=== PATIENT | female | born 1975 | race Caucasian/White ===

== ENCOUNTER 2018-10-08 15:55 | Emergency (ER) | payer MEDICARE, MEDICAID ==
--- NOTE | 2018-10-08 16:03 | ER Report ---
History and Physical Time Seen By MD: 16:03 Hx. of Stated Complaint: patient reports not being able to hear out of her right ear and it is painful. Also thinks she may have a UTI HPI/ROS CHIEF COMPLAINT: Right ear pain, difficulty hearing out of that ear, burning with urination HISTORY OF PRESENT ILLNESS: 43-year-old female patient presents to emergency room with complaint of right ear pain, difficulty hearing out of the right ear, burning with urination. Patient states that she's had a hard time hearing out of her ear for the past several days. She denies having any fevers or chills. She states that this morning started having burning with urination. She states that it is not all the time, however it is at the and of her urinary stream. She states she has not taken any medication for this. Patient also states she has been out of her medications for her bipolar. She requests a week's worth so she can get and see her primary care provider. REVIEW OF SYSTEMS: Respiratory: No cough, no dyspnea. Cardiovascular: No chest pain, no palpitations. Gastrointestinal: No vomiting, no abdominal pain. Musculoskeletal: No back pain. Allergies: Coded Allergies: acetaminophen (Verified Allergy, Intermediate, hives, 10/08/18) hydrocodone (Verified Allergy, Intermediate, hives, 10/08/18) Home Meds Active Scripts Lamotrigine (LAMICTAL) 100 Mg Tablet, 100 MG PO DAILY, #7 TAB Prov:RILEY BURGOS 10/08/18 Aripiprazole (ABILIFY) 20 Mg Tablet, 20 MG PO QHS, #7 TAB Prov:RILEY BURGOS 10/08/18 Phenazopyridine Hcl (PHENAZOPYRIDINE HCL) 100 Mg Tablet, 100 MG PO TID PRN for PAIN, #15 TAB Prov:RILEY BURGOS 10/08/18 Sulfamethoxazole/Trimet 800-160 Mg Tab (BACTRIM DS TABLET) 1 Each Tablet, 1 TAB PO Q12H, #14 TAB Prov:RILEY BURGOS 10/08/18 Past Medical/Surgical History Patient has a past medical history of fibromyalgia, bipolar depression. Patient has a surgical history of cholecystectomy. Reviewed Nurses Notes: Yes Constitutional Vital Sign - Last 24 Hours 10/08/18 10/08/18 16:00 17:12 Temp 97.6 Pulse 82 85 Resp 16 16 B/P (MAP) 111/83 118/72 (87) Pulse Ox 92 95 O2 Delivery Room Air Room Air Physical Exam General Appearance: The patient is alert, has no immediate need for airway protection and no current signs of toxicity. ENT: Patient has cerumen impaction bilaterally. I'm unable to visualize the tympanic membranes and this time. Respiratory: Chest is non tender, lungs are clear to auscultation. Cardiac: regular rate and rhythm Gastrointestinal: Abdomen is soft and non tender, no masses, bowel sounds normal. Musculoskeletal: Neck: Neck is supple and non tender. Extremities have full range of motion and are non tender. Skin: No rashes or lesions. DIFFERENTIAL DIAGNOSIS: After history and physical exam differential diagnosis was considered for otitis media, cerumen impaction, UTI. Medical Decision Making Data Points Laboratory Hematology Test 10/08/18 15:59 Urine Color Yellow Urine Clarity Cloudy Urine pH 6.0 pH (4.8-9.5) Urine Specific [place] 1.027 Urine Protein 30 mg/dL (NEGATIVE) Urine Glucose (UA) Negative mg/dL (NEGATIVE) Urine Ketones Negative mg/dL (NEGATIVE) Urine Blood Large (NEGATIVE) Urine Nitrite Negative (NEGATIVE) Urine Bilirubin Negative (NEGATIVE) Urine Urobilinogen 2.0 mg/dL (0.2-1.9) Urine Leukocyte Esterase Moderate (NEGATIVE) Urine RBC 1088 /HPF (0-2/HPF) Urine WBC 955 /HPF (0-5/HPF) Urine WBC Clumps Mod /HPF Urine Squamous Epithelial Cells Many /LPF (</=FEW) Urine Bacteria Negative /HPF (NONE-FEW) Urine Mucus None /HPF (NONE-FEW) Chemistry Test 10/08/18 15:59 Urine Color Yellow Urine Clarity Cloudy Urine pH 6.0 pH (4.8-9.5) Urine Specific [place] 1.027 Urine Protein 30 mg/dL (NEGATIVE) Urine Glucose (UA) Negative mg/dL (NEGATIVE) Urine Ketones Negative mg/dL (NEGATIVE) Urine Blood Large (NEGATIVE) Urine Nitrite Negative (NEGATIVE) Urine Bilirubin Negative (NEGATIVE) Urine Urobilinogen 2.0 mg/dL (0.2-1.9) Urine Leukocyte Esterase Moderate (NEGATIVE) Urine RBC 1088 /HPF (0-2/HPF) Urine WBC 955 /HPF (0-5/HPF) Urine WBC Clumps Mod /HPF Urine Squamous Epithelial Cells Many /LPF (</=FEW) Urine Bacteria Negative /HPF (NONE-FEW) Urine Mucus None /HPF (NONE-FEW) Urinalysis Test 10/08/18 15:59 Urine Color Yellow Urine Clarity Cloudy Urine pH 6.0 pH (4.8-9.5) Urine Specific [place] 1.027 Urine Protein 30 mg/dL (NEGATIVE) Urine Glucose (UA) Negative mg/dL (NEGATIVE) Urine Ketones Negative mg/dL (NEGATIVE) Urine Blood Large (NEGATIVE) Urine Nitrite Negative (NEGATIVE) Urine Bilirubin Negative (NEGATIVE) Urine Urobilinogen 2.0 mg/dL (0.2-1.9) Urine Leukocyte Esterase Moderate (NEGATIVE) Urine RBC 1088 /HPF (0-2/HPF) Urine WBC 955 /HPF (0-5/HPF) Urine WBC Clumps Mod /HPF Urine Squamous Epithelial Cells Many /LPF (</=FEW) Urine Bacteria Negative /HPF (NONE-FEW) Urine Mucus None /HPF (NONE-FEW) ED Course/Re-evaluation ED Course Patient was admitted in exam room, history and physical were obtained. Differential diagnoses were considered. On examination lungs are clear, heart regular, abdomen is soft nontender. Patient has cerumen impaction in bilateral auditory canals. A urinalysis was obtained. Patient did have a mild leukocyte esterase with 933 white blood cells per high-power field. Culture was ordered. We will go ahead and start her on Bactrim one tab by mouth twice a day 7 days #14. I was able to flush out her ear canals. I used warm water and a piston syringe. Is able clear both out without any problems. Patient did have improved comfort. We will go ahead and discharge patient home at this time. She is follow-up with primary care provider in the next week. Patient was given a prescription for her Lamictal and Abilify. Decision to Disposition Date: Oct 08, 2018 Decision to Disposition Time: 17:03 Depart Departure Latest Vital Signs Vital Signs Date Time Temp Pulse Resp B/P (MAP) Pulse Ox O2 Delivery O2 Flow Rate FiO2 10/08/18 17:12 85 16 118/72 (87) 95 Room Air 10/08/18 16:00 97.6 Impression: Primary Impression: UTI (urinary tract infection) Additional Impression: Impacted cerumen of both ears Condition: Improved Disposition: HOME OR SELF-CARE New Scripts Lamotrigine (LAMICTAL) 100 Mg Tablet 100 MG PO DAILY, #7 TAB Prov: RILEY BURGOS 10/08/18 Aripiprazole (ABILIFY) 20 Mg Tablet 20 MG PO QHS, #7 TAB Prov: RILEY BURGOS 10/08/18 Phenazopyridine Hcl (PHENAZOPYRIDINE HCL) 100 Mg Tablet 100 MG PO TID PRN for PAIN, #15 TAB Prov: RILEY BURGOS 10/08/18 Sulfamethoxazole/Trimet 800-160 Mg Tab (BACTRIM DS TABLET) 1 Each Tablet 1 TAB PO Q12H, #14 TAB Prov: RILEY BURGOS 10/08/18 Patient Instructions: Urinary Tract Infection in Women (ED) Additional Instructions: Increase fluid intake. Get plenty of rest. Take the medication as directed. Follow up with your primary care provider in the next week. We will culture the urine and will call if we need to change your antibiotics. Problem Qualifiers Primary Impression: UTI (urinary tract infection) Urinary tract infection type: acute cystitis Hematuria presence: with hem aturia Qualified Codes: N30.01 - Acute cystitis with hematuria RILEY BURGOS Oct 08, 2018 16:04
[2018-10-08] MEDS ORDERED: LAMO100T56 PO (17:00)
[2018-10-08] MEDS ORDERED: ARIP20TA11 PO (17:00)
[2018-10-08] MEDS ORDERED: PHEN100T27 PO (17:00)
[2018-10-08] MEDS ORDERED: SULF-198 PO (17:00)
[2018-10-08 17:12] VITALS: BP 118/72
== END 2018-10-08 17:13 | disposition home or self-care (01) ==
LOC: ER 16:12
DX: N30.01 Acute cystitis with hematuria (principal)
CPT/HCPCS: 81001; 87077; 87088; 87186; 99282

== ENCOUNTER 2018-11-11 19:14 | Emergency (ER) | payer MEDICARE, MEDICAID ==
[~2018-11-11 19:14] MED LIST: ARIP20TA11 PO; LAMO100T56 PO; PHEN100T27 PO; SULF-198 PO
[2018-11-11] MEDS ORDERED: ONDANSETRON 4 MG/2 ML VIAL IVP ONE (19:35)
[2018-11-11] MEDS ORDERED: NS(*) 0.9% 1000 ML BAG 1,000 ML IV ONE (19:35)
--- NOTE | 2018-11-11 19:41 | ER Report ---
History and Physical Time Seen By MD: 19:27 Hx. of Stated Complaint: pt has had abdominal/pelvic pain since last night. getting worse today. wants to talk with the doc about feeling depressed. thinks the abdominal pain is associated with that. feeling a little suicidal because she has been off her meds for awhile because she washed her perscription HPI/ROS CHIEF COMPLAINT: Abdominal pain HISTORY OF PRESENT ILLNESS: This is a 43-year-old female. Abdominal pain since last night. Worsening today. Had some loose stools today as well. Nausea without any vomiting. No problems with urination. Has not been able to eat or drink much because of the nausea. Also has been off of her depression meds/bipolar meds for a few days because she washed them with the laundry. No fevers or chills noted. She has had suicidal thoughts in the past and has had a few fleeting thoughts last few days but denies michael suicidal ideation. She normally takes Abilify and Lamictal. Allergies: Coded Allergies: acetaminophen (Verified Allergy, Intermediate, hives, 11/11/18) hydrocodone (Verified Allergy, Intermediate, hives, 11/11/18) Home Meds Active Scripts Aripiprazole (ABILIFY) 20 Mg Tablet, 20 MG PO QHS, #30 TAB 0 Refills Prov:DELON WILEY MD 11/11/18 Lamotrigine (LAMICTAL) 100 Mg Tablet, 100 MG PO QDAY, #30 TAB 0 Refills Prov:DELON WILEY MD 11/11/18 Lamotrigine (LAMICTAL) 100 Mg Tablet, 100 MG PO DAILY, #7 TAB Prov:RILEY BURGOS 10/08/18 Aripiprazole (ABILIFY) 20 Mg Tablet, 20 MG PO QHS, #7 TAB Prov:RILEY BURGOS 10/08/18 Phenazopyridine Hcl (PHENAZOPYRIDINE HCL) 100 Mg Tablet, 100 MG PO TID PRN for PAIN, #15 TAB Prov:RILEY BURGOS 10/08/18 Discontinued Scripts Sulfamethoxazole/Trimet 800-160 Mg Tab (BACTRIM DS TABLET) 1 Each Tablet, 1 TAB PO Q12H, #14 TAB Prov:RILEY BURGOS 10/08/18 Reviewed Nurses Notes: Yes Hx Substance Use Disorder: No Hx Alcohol Use: No Constitutional Vital Sign - Last 24 Hours 11/11/18 11/11/18 11/11/18 11/11/18 19:14 19:21 19:25 19:29 Temp 97.3 Pulse ??? 73 76 Resp 14 B/P (MAP) 116/98 116/98 (104) Pulse Ox 97 96 O2 Delivery Room Air 11/11/18 11/11/18 11/11/18 11/11/18 19:30 19:44 19:45 20:15 Pulse 81 B/P (MAP) ???/??? (1665) 126/97 (107) ???/??? (1665) Pulse Ox 96 11/11/18 11/11/18 11/11/18 11/11/18 20:29 21:15 21:45 22:00 Pulse 129 76 71 ??? Pulse Ox 85 89 98 85 11/11/18 11/11/18 11/11/18 11/11/18 22:05 22:20 22:26 22:35 Pulse ? B/P (MAP) 110/83 (92) Pulse Ox 88 11/11/18 11/11/18 22:50 23:05 Pulse ? Intake and Output 11/11/18 11/11/18 11/12/18 14:59 22:59 06:59 Intake Total 1000 ml Balance 1000 ml Physical Exam General Appearance: The patient is alert. No acute distress. Eyes: Pupils are equal, round. No pallor, injection or icterus. ENT: Mucous membranes are moist. Normal oral mucosa. Posterior oropharynx is normal. Neck: Supple and non tender. Respiratory: Lungs are clear to auscultation. Cardiovascular: Regular rate and rhythm. No murmurs, gallops or rubs. Normal capillary refill. Gastrointestinal: Abdomen is soft, pain across the lower abdomen, worse in the suprapubic area. Nondistended. Guarding but no rebound. No masses or organomegaly. Hyperactive bowel sounds. No costovertebral angle tenderness with percussion. Neurological: Alert and oriented x3. Skin: Warm and dry. DIFFERENTIAL DIAGNOSIS: After history and physical exam, differential diagnosis was considered for abdominal pain including but not limited to appendicitis, cholecystitis, gastritis and urinary tract infection. Medical Decision Making Data Points Result Diagram: 11/11/18195411/11/181954 Laboratory Hematology Test 11/11/18 19:27 11/11/18 19:55 Urine Color [place] Urine Clarity Slightly-cloudy Urine pH 5.0 pH (4.8-9.5) Urine Specific [place] 1.032 Urine Protein Negative mg/dL (NEGATIVE) Urine Glucose (UA) Negative mg/dL (NEGATIVE) Urine Ketones Negative mg/dL (NEGATIVE) Urine Blood Negative (NEGATIVE) Urine Nitrite Negative (NEGATIVE) Urine Bilirubin Negative (NEGATIVE) Urine Urobilinogen Negative mg/dL (0.2-1.9) Urine Leukocyte Esterase Negative (NEGATIVE) Urine RBC 2 /HPF (0-2/HPF) Urine WBC 1 /HPF (0-5/HPF) Urine Squamous Epithelial Cells Many /LPF (</=FEW) Urine Bacteria Few /HPF (NONE-FEW) Urine Mucus Few /HPF (NONE-FEW) Urine HCG, Qualitative Negative (NEGATIVE) Urine Opiates Screen Negative Urine Barbiturates Screen Negative Ur Tricyclic Antidepressants Screen Negative Urine Phencyclidine Screen Negative Urine Amphetamines Screen Positive Urine Benzodiazepines Screen Negative Urine Cocaine Screen Negative Urine Cannabinoids Screen Negative Red Blood Count 4.76 M/uL (4.17-5.56) Mean Corpuscular Volume 91.3 fL (80.0-96.0) Mean Corpuscular Hemoglobin 30.9 pg (26.0-33.0) Mean Corpuscular Hemoglobin Concent 33.9 g/dL (32.0-36.0) Red Cell Distribution Width 13.8 % (11.5-14.5) Mean Platelet Volume 8.2 fL (7.2-11.1) Neutrophils (%) (Auto) 52.8 % (39.4-72.5) Lymphocytes (%) (Auto) 34.5 % (17.6-49.6) Monocytes (%) (Auto) 9.7 % (4.1-12.4) Eosinophils (%) (Auto) 2.2 % (0.4-6.7) Basophils (%) (Auto) 0.8 % (0.3-1.4) Nucleated RBC Relative Count (auto) 0.0 /100WBC Neutrophils # (Auto) 3.0 K/uL (2.0-7.4) Lymphocytes # (Auto) 2.0 K/uL (1.3-3.6) Monocytes # (Auto) 0.6 K/uL (0.3-1.0) Eosinophils # (Auto) 0.1 K/uL (0.0-0.5) Basophils # (Auto) 0.0 K/uL (0.0-0.1) Nucleated RBC Absolute Count (auto) 0.00 K/uL Sodium Level 139 mmol/L (137-145) Potassium Level 4.3 mmol/L (3.5-5.0) Chloride Level 107 mmol/L (98-107) Carbon Dioxide Level 25 mmol/L (22-31) Blood Urea Nitrogen 9 mg/dl (7-18) Creatinine 0.70 mg/dl (0.52-1.04) Glomerular Filtration Rate Calc > 60.0 Random Glucose 80 mg/dl (75-110) Calcium Level 9.0 mg/dl (8.4-10.2) Magnesium Level 2.2 mg/dl (1.7-2.2) Total Bilirubin 0.1 mg/dl (0.2-1.3) Aspartate Amino Transf (AST/SGOT) 49 U/L (0-35) Alanine Aminotransferase (ALT/SGPT) 50 U/L (0-56) Alkaline Phosphatase 75 U/L (0-126) Total Protein 6.9 g/dl (6.3-8.2) Albumin 3.8 g/dl (3.5-5.0) Amylase Level 89 U/L (0-110) Lipase 123 U/L (23-300) Salicylates Level < 10 mg/L Salicylate Last Dose Date unk Acetaminophen Level < 10 ug/ml Serum Alcohol < 10 mg/dl HIV (1&2) Antibody Negative (NEGATIVE) Chemistry Test 11/11/18 19:27 11/11/18 19:55 Urine Color [place]ati Urine Clarity Slightly-cloudy Urine pH 5.0 pH (4.8-9.5) Urine Specific [place] 1.032 Urine Protein Negative mg/dL (NEGATIVE) Urine Glucose (UA) Negative mg/dL (NEGATIVE) Urine Ketones Negative mg/dL (NEGATIVE) Urine Blood Negative (NEGATIVE) Urine Nitrite Negative (NEGATIVE) Urine Bilirubin Negative (NEGATIVE) Urine Urobilinogen Negative mg/dL (0.2-1.9) Urine Leukocyte Esterase Negative (NEGATIVE) Urine RBC 2 /HPF (0-2/HPF) Urine WBC 1 /HPF (0-5/HPF) Urine Squamous Epithelial Cells Many /LPF (</=FEW) Urine Bacteria Few /HPF (NONE-FEW) Urine Mucus Few /HPF (NONE-FEW) Urine HCG, Qualitative Negative (NEGATIVE) Urine Opiates Screen Negative Urine Barbiturates Screen Negative Ur Tricyclic Antidepressants Screen Negative Urine Phencyclidine Screen Negative Urine Amphetamines Screen Positive Urine Benzodiazepines Screen Negative Urine Cocaine Screen Negative Urine Cannabinoids Screen Negative White Blood Count 5.7 k/uL (4.5-11.0) Red Blood Count 4.76 M/uL (4.17-5.56) Hemoglobin 14.7 g/dL (12.0-16.0) Hematocrit 43.5 % (34.0-47.0) Mean Corpuscular Volume 91.3 fL (80.0-96.0) Mean Corpuscular Hemoglobin 30.9 pg (26.0-33.0) Mean Corpuscular Hemoglobin Concent 33.9 g/dL (32.0-36.0) Red Cell Distribution Width 13.8 % (11.5-14.5) Platelet Count 348 K/uL (150-450) Mean Platelet Volume 8.2 fL (7.2-11.1) Neutrophils (%) (Auto) 52.8 % (39.4-72.5) Lymphocytes (%) (Auto) 34.5 % (17.6-49.6) Monocytes (%) (Auto) 9.7 % (4.1-12.4) Eosinophils (%) (Auto) 2.2 % (0.4-6.7) Basophils (%) (Auto) 0.8 % (0.3-1.4) Nucleated RBC Relative Count (auto) 0.0 /100WBC Neutrophils # (Auto) 3.0 K/uL (2.0-7.4) Lymphocytes # (Auto) 2.0 K/uL (1.3-3.6) Monocytes # (Auto) 0.6 K/uL (0.3-1.0) Eosinophils # (Auto) 0.1 K/uL (0.0-0.5) Basophils # (Auto) 0.0 K/uL (0.0-0.1) Nucleated RBC Absolute Count (auto) 0.00 K/uL Glomerular Filtration Rate Calc > 60.0 Calcium Level 9.0 mg/dl (8.4-10.2) Magnesium Level 2.2 mg/dl (1.7-2.2) Total Bilirubin 0.1 mg/dl (0.2-1.3) Aspartate Amino Transf (AST/SGOT) 49 U/L (0-35) Alanine Aminotransferase (ALT/SGPT) 50 U/L (0-56) Alkaline Phosphatase 75 U/L (0-126) Total Protein 6.9 g/dl (6.3-8.2) Albumin 3.8 g/dl (3.5-5.0) Amylase Level 89 U/L (0-110) Lipase 123 U/L (23-300) Salicylates Level < 10 mg/L Salicylate Last Dose Date unk Acetaminophen Level < 10 ug/ml Serum Alcohol < 10 mg/dl HIV (1&2) Antibody Negative (NEGATIVE) Toxicology Test 11/11/18 19:27 11/11/18 19:55 Urine Opiates Screen Negative Urine Barbiturates Screen Negative Ur Tricyclic Antidepressants Screen Negative Urine Phencyclidine Screen Negative Urine Amphetamines Screen Positive Urine Benzodiazepines Screen Negative Urine Cocaine Screen Negative Urine Cannabinoids Screen Negative Salicylates Level < 10 mg/L Salicylate Last Dose Date unk Acetaminophen Level < 10 ug/ml Serum Alcohol < 10 mg/dl Urinalysis Test 11/11/18 19:27 Urine Color Kati Urine Clarity Slightly-cloudy Urine pH 5.0 pH (4.8-9.5) Urine Specific [place] 1.032 Urine Protein Negative mg/dL (NEGATIVE) Urine Glucose (UA) Negative mg/dL (NEGATIVE) Urine Ketones Negative mg/dL (NEGATIVE) Urine Blood Negative (NEGATIVE) Urine Nitrite Negative (NEGATIVE) Urine Bilirubin Negative (NEGATIVE) Urine Urobilinogen Negative mg/dL (0.2-1.9) Urine Leukocyte Esterase Negative (NEGATIVE) Urine RBC 2 /HPF (0-2/HPF) Urine WBC 1 /HPF (0-5/HPF) Urine Squamous Epithelial Cells Many /LPF (</=FEW) Urine Bacteria Few /HPF (NONE-FEW) Urine Mucus Few /HPF (NONE-FEW) Urine HCG, Qualitative Negative (NEGATIVE) EKG/Imaging Imaging CT ABDOMEN PELVIS W/ CON COMPARISONS: None. ADDITIONAL PERTINENT HISTORY: Abdominal pain TECHNIQUE: Multiple axial images were obtained from the lung bases through the lesser trochanters before and after the IV administration of IV contrast. One of the following dose optimization techniques was utilized in the performance of this exam: Automated exposure control; adjustment of the mA and/or kV according to the patient's size; or use of an iterative reconstruction technique. Specific details can be referenced in the facility's radiology CT exam operational policy. CONTRAST: 75 ml of Isovue-370 FINDINGS: Lung bases: Negative. Free air and free fluid: None. Liver: Negative. Spleen: Negative. Kidneys, ureters and urinary bladder: Small low-attenuation lesion involving the midportion of the right kidney consistent with a simple cyst. Adrenal glands: Negative. Pancreas: Negative. Gallbladder: Surgically absent. Bowel and mesentery: Negative including a normal-appearing appendix in the right lower quadrant. No bowel obstruction noted.. Pelvic contents: Negative Lymph node assessment: Negative. Retroperitoneum: Negative. Abdominal vasculature: Negative. Surrounding soft tissues: Negative. Osseous structures: Negative. IMPRESSION: 1. No evidence of acute intra-abdominal or intrapelvic process. 2. Patient status post cholecystectomy. Report Dictated By: Andrew La MD at 11/11/2018 10:13 PM ED Course/Re-evaluation Clinical Indication for ER IV: Hydration, IV Access ED Course Labs unremarkable. CT scan was done. Initially she had some vomiting with IV contrast and we had to bring her back to the ER give her some Phenergan and Benadryl and then repeat the scan. This was unremarkable. She was feeling a lot better. On reevaluation of her depression, she says that she think she'll be fine if she has her medications so I started her back on her Abilify Lamictal. Her was present and they agreed that if she is worsening and having suicidal ideation they will return to the ER for further treatment. Decision to Disposition Date: Nov 11, 2018 Decision to Disposition Time: 22:59 Depart Departure Latest Vital Signs Vital Signs Date Time Temp Pulse Resp B/P (MAP) Pulse Ox O2 Delivery O2 Flow Rate FiO2 11/11/18 23:05 ??? 11/11/18 22:26 110/83 (92) 11/11/18 22:05 88 11/11/18 19:21 97.3 14 Room Air Impression: Primary Impression: Abdominal pain Additional Impression: Bipolar depression Condition: Improved Disposition: HOME OR SELF-CARE New Scripts Aripiprazole (ABILIFY) 20 Mg Tablet 20 MG PO QHS, #30 TAB 0 Refills Prov: DELON WILEY MD 11/11/18 Lamotrigine (LAMICTAL) 100 Mg Tablet 100 MG PO QDAY, #30 TAB 0 Refills Prov: DELON WILEY MD 11/11/18 Patient Instructions: Abdominal Pain (ED), Bipolar Disorder (ED) Additional Instructions: We did not find a cause for your abdominal pain tonight. We feel this is likely from a virus. Rest and increase fluid intake. Re-start your Lamictal and Abilify. If you depression is worsening or having suicidal thoughts, please return for further treatment and hospitalization. Problem Qualifiers Primary Impression: Abdominal pain Abdominal location: lower abdomen, unspecified Qualified Codes: R10.30 - Lower abdominal pain, unspecified DELON WILEY MD Nov 11, 2018 19:40
[2018-11-11] MEDS ORDERED: IOPAMIDOL 76% 150 ML INFUS BTL 150 ML ONE (19:56)
[2018-11-11 20:03] LABS: PLATELET COUNT, AUTOMATED 348 K/uL (150-450)
[2018-11-11] MEDS ORDERED: diphenhydrAMINE 50 MG/ML VIAL IVP ONE (20:50)
[2018-11-11] MEDS ORDERED: PROMETHAZINE 25 MG/ML 1 ML AMP IVP ONE (20:50)
--- NOTE | 2018-11-11 22:22 | RADIOLOGY IMAGING REPORT ---
FACILITY: [facility] PATIENT NAME: Jaye Babb : 1975 MR: [id number] V: [id number] EXAM DATE: ORDERING PHYSICIAN: DELON WILEY TECHNOLOGIST: Location: [facility] Patient: Jaye Babb : 1975 Visit/Account:[id number] Date of Sevice: 11/11/2018 CT ABDOMEN PELVIS W/ CON COMPARISONS: None. ADDITIONAL PERTINENT HISTORY: Abdominal pain TECHNIQUE: Multiple axial images were obtained from the lung bases through the lesser trochanters bef ore and after the IV administration of IV contrast. One of the following dose optimization technique s was utilized in the performance of this exam: Automated exposure control; adjustment of the mA and/ or kV according to the patient's size; or use of an iterative reconstruction technique. Specific de tails can be referenced in the facility's radiology CT exam operational policy. CONTRAST: 75 ml of Isovue-370 FINDINGS: Lung bases: Negative. Free air and free fluid: None. Liver: Negative. Spleen: Negative. Kidneys, ureters and urinary bladder: Small low-attenuation lesion involving the midportion of the ri ght kidney consistent with a simple cyst. Adrenal glands: Negative. Pancreas: Negative. Gallbladder: Surgically absent. Bowel and mesentery: Negative including a normal-appearing appendix in the right lower quadrant. No b owel obstruction noted.. Pelvic contents: Negative Lymph node assessment: Negative. Retroperitoneum: Negative. Abdominal vasculature: Negative. Surrounding soft tissues: Negative. Osseous structures: Negative. IMPRESSION: 1. No evidence of acute intra-abdominal or intrapelvic process. 2. Patient status post cholecystectomy. Report Dictated By: Andrew La MD at 11/11/2018 10:13 PM Report E-Signed By: Andrew La MD at 11/11/2018 10:18 PM WSN:[id number]
[2018-11-11 22:26] VITALS: BP 110/83
[2018-11-11] MEDS ORDERED: LAMO100T56 PO (23:01)
[2018-11-11] MEDS ORDERED: ARIP20TA11 PO (23:01)
[2018-11-11] MEDS ORDERED: ARIPiprazole 10 MG TAB PO ONE (23:05)
== END 2018-11-11 23:10 | disposition home or self-care (01) ==
LOC: ER 19:22
DX: R10.30 Lower abdominal pain, unspecified (principal); F31.9 Bipolar disorder, unspecified; F32.9 Major depressive disorder, single episode, unspecified
CPT/HCPCS: 74177; 80305; 81001; 81025; 82150; 83690; 83735; 84443; 85025; 86592; 87491; 87591; 96361; 96374; 96375; 99284; A9270; G0432; G0480; J1200; J2405; J2550; J7030; Q9967; 80320; 80329; 82040; 82247; 82310; 82374; 82435; 82565; 82947; 84075; 84132; 84155; 84295; 84450; 84460; 84520; 86703